=== PATIENT | female | born 1990 | race Caucasian/White ===

== ENCOUNTER 2021-09-22 18:33 | Emergency (ER) | payer MEDICAID, SELFPAY ==
[~2021-09-22] VITALS: Ht 165.1 cm; Wt 101.2 kg
[2021-09-22 18:33] VITALS: BP_SYST 131
--- NOTE | 2021-09-22 18:33 | NUR ---
BROUGHT BACK TO OUTSIDE TRIAGE TENT, TRIAGED AND AWAITING ER BED.
--- NOTE | 2021-09-22 20:09 | NUR ---
Patient refused to stay and be seen. Patient left without being seen. No further treatment provided. ER MD aware
== END 2021-09-22 20:09 | disposition left against medical advice (07) ==
LOC: SED 18:33
DX: R73.9 Hyperglycemia, unspecified (principal); Z53.21 Procedure and treatment not carried out due to patient leaving prior to being seen by health care provider
CPT/HCPCS: 82962

== ENCOUNTER 2022-09-08 03:00 | Emergency (ER) | payer MEDICAID ==
[~2022-09-08] VITALS: Ht 165.1 cm; Wt 90.7 kg
[2022-09-08 03:02] VITALS: BP_SYST 106
--- NOTE | 2022-09-08 03:15 | NUR ---
Patient to ER bed 02 to gown for evaluation. Side rails up. Report given to JAYDEN THORNTON.
--- NOTE | 2022-09-08 03:20 | NUR ---
Received report from HILLARY Jasmine; assuming care of patient at this time.
--- NOTE | 2022-09-08 03:25 | NUR ---
Patient BIB [facility] for c/o retana bag not draining and lower abd pain. Patient reports pain 5/10 at this time. Patient afebrile and denies N/V/D. Patient has hx of DM and HTN. Patient A/Ox4, VSS, ambulatory, resp even and unlabored. Patient lying in bed with safety precautions in place and connected to monitor. Nad noted at this time. ER MD Geiger made aware.
--- NOTE | 2022-09-08 03:25 | NUR ---
ER MD Geiger at bedside examing patient.
--- NOTE | 2022-09-08 04:00 | NUR ---
Patient's retana taken out and patient ambulated to toilet to use for urine sample.
--- NOTE | 2022-09-08 04:25 | NUR ---
Per ER MD Geiger; verbal order given to not reinsert retana at this time.
--- NOTE | 2022-09-08 05:00 | NUR ---
Patient sleeping comfortably in bed with safety precautions in place and connected to monitor. Nad noted at this time.
[2022-09-08] MEDS ORDERED: NITR-85 PO ×2 (05:20→05:54)
[2022-09-08 05:37] LABS: BILIRUBIN,URINE NEGATIVE (NEGATIVE); BLOOD, URINE 3+ (NEGATIVE); CLARITY/URINE CLOUDY (CLEAR); COLOR,URINE YELLOW (YELLOW); GLUCOSE,URINE NEGATIVE (NEGATIVE); KETONES,URINE NEGATIVE (NEGATIVE); LEUKOCYTE ESTERASE ,URINE 3+ (NEGATIVE); NITRITE, URINE POSITIVE (NEGATIVE); PH,URINE 8.5 (5.0-8.0); PROTEIN URINE 3+ (NEGATIVE); UROBILINOGEN,URINE 0.2 (0.2-1.0)
[2022-09-08 05:39] LABS: RBC,URINE 80-100 /HPF (0-3); WBC,URINE 20-50 /HPF (0-3)
[2022-09-08 05:40] LABS: BACTERIA,URINE MANY /HPF (None Seen)
[2022-09-08 05:41] LABS: TRIPLE PHOSPHATE CRYSTAL,UR 0-10 /HPF (None Seen)
[2022-09-08] MEDS ORDERED: NITROFURANTOIN MONOHYD/M-CRYST 100 MG CAPSULE (MacroBID) PO ONE (06:00)
--- NOTE | 2022-09-08 07:09 | NUR ---
Report given to HERBER Paulino; assuming patient care at this time.
--- NOTE | 2022-09-08 07:15 | NUR ---
Received report from HILLARY Block. Pt in no acute distress at this time. Care to be given as ordered by provider.
[2022-09-08 08:50] VITALS: BP_SYST 110
--- NOTE | 2022-09-08 08:52 | NUR ---
Patient given written and verbal discharge instructions and verbalizes understanding. ER Dr. Lan MD discussed with patient the results and treatment provided. Patient in stable condition. ID arm band removed. Rx of macrobid given. Patient educated on pain management and to follow up with PMD. Pain Scale 0/10. Opportunity for questions provided and answered. Medication side effect fact sheet provided.
== END 2022-09-08 08:52 | disposition home or self-care (01) ==
LOC: SED 03:00
DX: T83.091A Other mechanical complication of indwelling urethral catheter, initial encounter (principal); N39.0 Urinary tract infection, site not specified; R10.30 Lower abdominal pain, unspecified; E11.9 Type 2 diabetes mellitus without complications; Z88.1 Allergy status to other antibiotic agents; Z79.899 Other long term (current) drug therapy
CPT/HCPCS: 81000; 81025; 87086; 99284